=== PATIENT | female | born 2000 | race Caucasian/White ===

== ENCOUNTER 2019-04-22 22:43 | Emergency (ER) | payer SELFPAY ==
[~2019-04-22] VITALS: Ht 170.2 cm; Wt 59.1 kg
[2019-04-22 22:47] VITALS: BP 137/43
--- NOTE | 2019-04-23 00:54 | PHYS DOC ---
Past Medical History Past Medical History: No Pertinent History Past Surgical History: No Surgical History Alcohol Use: None Adult General Chief Complaint Chief Complaint: NOSEBLEED HPI HPI Patient is a 18 year old female who presents with bloody nose that has been intermittently bleeding for 1 week. The patient presents to the ER in her nose is not currently bleeding. The patient states that she has no history of a bloody nose. Complete ROS were reviewed and found to be within normal limits, except as documented in the HPI Physical Exam Physical Exam Constitutional: Well developed, well nourished, no acute distress, non-toxic appearance. [] HENT: Normocephalic, atraumatic, bilateral external ears normal, oropharynx moist, no oral exudates, nose turbinates inflamed. No blood noted. Eyes: PERRLA, EOMI, conjunctiva normal, no discharge. [] Neurologic: Alert and oriented X 3, normal motor function, normal sensory function, no focal deficits noted. [] Psychologic: Affect normal, judgement normal, mood normal. [] Current Patient Data Vital Signs Vital Signs Date Time Temp Pulse Resp B/P (MAP) Pulse Ox O2 Delivery O2 Flow Rate FiO2 04/22/19 22:47 98.1 96 9 137/43 (74) 100 Room Air 98.1 EKG EKG [] Radiology/Procedures Radiology/Procedures [] Course & Med Decision Making Course & Med Decision Making Pertinent Labs and Imaging studies reviewed. (See chart for details) The patient nose is not currently bleeding. A medical screening exam was performed on this patient and the patient does not appear to be having a medical emergency. Her symptoms are not of sufficient severity and within reasonable medical probability it is unlikely the absence of immediate medical attention would result in placing the health of the individual (or, with respect to a woman, the health of the woman or her unborn child) in serious jeopardy, serious impairment to bodily functions, or serious dysfunction of any bodily organ or part. If , the patient is not in labor Dragon Disclaimer Dragon Disclaimer This electronic medical record was generated, in whole or in part, using a voice recognition dictation system. Departure Departure Impression: Primary Impression: Encounter for medical screening examination Disposition: HOME, SELF-CARE Condition: STABLE Referrals: NO PCP (PCP) Patient Instructions: Medical Screening Exam Additional Instructions: Thank you for visiting [facility]. We appreciate you trusting us with your care. If any additional problems come up don't hesitate to return to visit us. Please follow up with your primary care provider so they can plan additional care if needed and know about the problem that you had. If symptoms worsen come back to the Emergency Department. Any concerning symptoms that start such as chest pain, shortness of air, weakness or numbness on one side of the body, running high fevers or any other concerning symptoms return to the ER. SPEEDY GRECO APRN Apr 23, 2019 00:54
== END 2019-04-23 00:32 | disposition home or self-care (01) ==
LOC: ER 22:43
DX: R04.0 Epistaxis (principal)
CPT/HCPCS: 99281

== ENCOUNTER 2020-11-08 00:59 | Emergency (ER) | payer OTHER ==
[~2020-11-08] VITALS: Ht 170.2 cm; Wt 60.0 kg
[2020-11-08] MEDS ORDERED: MORPHINE SULFATE 4 MG/ML INJ. IV/SQ STA (03:01)
[2020-11-08] MEDS ORDERED: ONDANSETRON PF 4 MG/2 ML VIAL. IVP ONE (03:15)
[2020-11-08] MEDS ORDERED: IV NORMAL SALINE 1000ML BAG 1,000 ML IV SCH (03:15)
--- NOTE | 2020-11-08 03:16 | PHYS DOC ---
Past Medical History Past Medical History: No Pertinent History Past Surgical History: No Surgical History Smoking Status: Never Smoker Alcohol Use: None General Adult EDM: Chief Complaint: ABDOMINAL PAIN Problems: (1) Abdominal pain HPI: HPI: 20-year-old female presents to the emergency department complaining of right- sided abdominal pain with no relief after being seen at [facility] yesterday. She reports that her pain is progressed over the last 24 hours and she was told to come back to the emergency department if she was able to eat or tolerate her clear liquid diet that she was put on after her ER encounter yesterday. She now states that her pain is moderate in severity, nonradiating for the right side, associated with nausea without vomiting or diarrhea. Denies further stool changes, urinary troubles. Denies fever chills shortness of breath chest pain Review of Systems: Review of Systems: Constitutional: Denies fever or chills. Eyes: Denies change in vision, pain. HENT: Denies congestion or sore throat. Respiratory: Denies cough or shortness of breath. Cardiovascular: Denies chest pain or edema. GI: Admits to abdominal pain, nausea. : Denies change in urination, dysuria. Musculoskeletal: Denies extremity pain, or trauma. Skin: Denies rash, skin change. Neurologic: Denies headache, focal weakness. Psychiatric: Denies depression or anxiety. All other systems reviewed as negative except for what was mentioned in the HPI. Heart Score: C/O Chest Pain: No Current Medications: Current Medications Medications (Trade) Dose Ordered Sig/Gail Start Time Stop Time Status Last Admin Dose Admin Morphine Sulfate (Morphine Sulfate) 4 mg 1X STAT 11/08/20 03:01 11/08/20 03:10 DC Ondansetron HCl (Zofran) 4 mg 1X ONCE 11/08/20 03:15 11/08/20 03:16 Sodium Chloride 1,000 ml @ 1,000 mls/hr Q1H 11/08/20 03:15 11/08/20 04:14 Allergies: Allergies: Allergies Coded Allergies Type Severity Reaction Last Updated Verified No Known Drug Allergies 11/08/20 No Physical Exam: PE: Constitutional: Mild acute distress, non-toxic appearance. HENT: Atraumatic, bilateral external ears normal, nose normal. Eyes: PERRLA, EOMI, conjunctiva normal, no discharge. Neck: Normal range of motion, supple, no stridor. Cardiovascular: Heart rate regular rhythm. 2+ radial pulses Lungs & Thorax: No respiratory distress, symmetrical expansion. Bilateral norm th sounds clear to auscultation Abdomen: Soft, right upper quadrant tenderness to palpation Skin: Warm, dry. Extremities: No tenderness, no cyanosis, ROM intact, no edema. Neurologic: Alert and oriented X 3, normal motor function, normal sensory function, no focal deficits noted. Non ataxic gait. GCS 15. Psychologic: Affect normal, judgment normal, mood normal. Current Patient Data: Labs: Laboratory Tests Test 11/08/20 03:10 11/08/20 03:13 11/08/20 03:30 Urine Collection Type Unknown Urine Color Yellow Urine Clarity Clear Urine pH 6.0 (<5.0-8.0) Urine Specific [place] 1.025 (1.000-1.030) Urine Protein Negative mg/dL (NEG-TRACE) Urine Glucose (UA) Negative mg/dL (NEG) Urine Ketones (Stick) Negative mg/dL (NEG) Urine Blood Large (NEG) Urine Nitrite Negative (NEG) Urine Bilirubin Negative (NEG) Urine Urobilinogen Dipstick 1.0 mg/dL (0.2 mg/dL) Urine Leukocyte Esterase Negative (NEG) Urine RBC 1-2 /HPF (0-2) Urine WBC Occ /HPF (0-4) Urine Squamous Epithelial Cells Few /LPF Urine Bacteria Few /HPF (0-FEW) Urine Mucus Marked /LPF Bedside Urine HCG, Qualitative Hcg negative (Negative) White Blood Count 4.5 x10^3/uL (4.0-11.0) Red Blood Count 4.04 x10^6/uL (3.50-5.40) Hemoglobin 9.8 g/dL (12.0-15.5) Hematocrit 31.7 % (36.0-47.0) Mean Corpuscular Volume 78 fL (79-100) Mean Corpuscular Hemoglobin 24 pg (25-35) Mean Corpuscular Hemoglobin Concent 31 g/dL (31-37) Red Cell Distribution Width 14.7 % (11.5-14.5) Platelet Count 249 x10^3/uL (140-400) Neutrophils (%) (Auto) 58 % (31-73) Lymphocytes (%) (Auto) 26 % (24-48) Monocytes (%) (Auto) 12 % (0-9) Eosinophils (%) (Auto) 3 % (0-3) Basophils (%) (Auto) 1 % (0-3) Neutrophils # (Auto) 2.6 x10^3/uL (1.8-7.7) Lymphocytes # (Auto) 1.2 x10^3/uL (1.0-4.8) Monocytes # (Auto) 0.6 x10^3/uL (0.0-1.1) Eosinophils # (Auto) 0.1 x10^3/uL (0.0-0.7) Basophils # (Auto) 0.0 x10^3/uL (0.0-0.2) Sodium Level 134 mmol/L (136-145) Potassium Level 3.6 mmol/L (3.5-5.1) Chloride Level 103 mmol/L (98-107) Carbon Dioxide Level 22 mmol/L (21-32) Anion Gap 9 (6-14) Blood Urea Nitrogen 6 mg/dL (7-20) Creatinine 0.9 mg/dL (0.6-1.0) Estimated GFR (Cockcroft-Gault) 79.0 BUN/Creatinine Ratio 7 (6-20) Glucose Level 85 mg/dL (70-99) Calcium Level 8.5 mg/dL (8.5-10.1) Total Bilirubin 0.2 mg/dL (0.2-1.0) Aspartate Amino Transf (AST/SGOT) 22 U/L (15-37) Alanine Aminotransferase (ALT/SGPT) 33 U/L (14-59) Alkaline Phosphatase 53 U/L (46-116) Total Protein 6.8 g/dL (6.4-8.2) Albumin 3.5 g/dL (3.4-5.0) Albumin/Globulin Ratio 1.1 (1.0-1.7) Lipase 135 U/L (73-393) Serum Test, Qualitative Negative (NEG) Vital Signs: Vital Signs Date Time Temp Pulse Resp B/P (MAP) Pulse Ox O2 Delivery O2 Flow Rate FiO2 11/08/20 03:46 18 99 11/08/20 03:09 98.0 74 18 113/59 (74) 99 Room Air 98.0 Radiology/Procedures: Radiology/Procedures: Study: CT abdomen/pelvis with intravenous contrast Indication: Abdominal pain. Comparison: 11/07/2020 Technique: Helical CT imaging performed of the abdomen and pelvis after the intravenous administration of 75 cc Omnipaque 300 contrast. Sagittal and coronal reformats were obtained. One or more of the following individualized dose reduction techniques were utilized for this examination: 1. Automated exposure control 2. Adjustment of the mA and/or kV according to patient size 3. Use of iterative reconstruction technique. Findings: Unremarkable visualized lungs and mediastinal contents. Hepatic parenchymal attenuation is within normal limits in relation to the spleen. Right hepatic lobe calcification/granuloma. Faint fatty infiltration along the falciform ligament. Within normal limits gallbladder, biliary tree, pancreas, and adrenal glands. Upper limits of normal size of the spleen measuring 13.4 cm craniocaudal. Symmetric renal parenchymal enhancement. No hydronephrosis. Normal bladder wall thickness. Within normal limits uterus and ovaries considering patient age. Mild volume colonic stool burden. No localized wall thickening or pericolonic inflammation. The appendix is normal. Nonobstructed small bowel. Unremarkable stomach. No major vascular abnormality. No lymphadenopathy by size criteria. Trace free pelvic fluid also seen on the prior. No acute or aggressive osseous process. Several small Schmorl's nodes. Minimal lumbar levocurvature and disc space narrowing at L5-S1. Impression: 1. No acute abnormality is identified throughout the abdomen or pelvis or significant change from the 11/07/2020 comparison. A tiny amount of free fluid is seen within the deep pelvis typically physiologic in a patient this age and also present previously. Electronically signed by: MINDA CROSS MD (11/08/2020 5:05 AM) Course & Med Decision Making: Course & Med Decision Making Per chart review from the ER encounter yesterday [place]. The patient had a CT Noncon of the abdomen and pelvis that showed some biliary sludge, normal lab work, normal Plain view x-ray. CT today is unremarkable, labs are unremarkable, patient was discharged in stable condition advised to use Pepcid, Tylenol or ibuprofen for pain at home Departure Departure Impression: Primary Impression: Abdominal pain Disposition: 01 HOME / SELF CARE / HOMELESS Referrals: NO PCP (PCP) Patient Instructions: Abdominal Pain (Nonspecific) Additional Instructions: You were seen in the emergency department for abdominal pain. Your tests did not show any obvious acute cause of your symptoms and your physical exam was non concerning for a dangerous disease process at this time. This however can change early in a disease course. You must return to the ED if you develop any new or worrisome symptoms for another exam. - Make sure to drink plenty of fluids at home - You may take a gentle laxative such as Miralax (over the counter) for bowel comfort. - Avoid drinking alcohol while you are having abdominal pain as this may worsen symptoms. - Return to the ER if you are not able to tolerate water and/or a normal diet, have increased pain or a change in character of your pain, develop a fever (>100.3 F), have nausea, vomiting and/or diarrhea that is unable to be treated at home, pass out, and/or you are not able to perform you normal daily activity. JENNIFER MENDEZ DO Nov 08, 2020 03:15
[2020-11-08 03:23] LABS: BILIRUBIN,URINE NEGATIVE (NEG); CLARITY,URINE CLEAR; COLOR,URINE YELLOW; NITRITE,URINE NEGATIVE (NEG); PROTEIN,URINE NEGATIVE (NEG-TRACE)
[2020-11-08 03:31] LABS: BACTERIA,URINE FEW /HPF (0-FEW); WBC,URINE OCC /HPF (0-4)
[2020-11-08 03:46] LABS: BASO % 1 % (0-3); EOS # 0.1 x10^3/uL (0.0-0.7); EOS % 3 % (0-3); HEMATOCRIT 31.7 % (36.0-47.0); HEMOGLOBIN 9.8 g/dL (12.0-15.5); LYMPH # 1.2 x10^3/uL (1.0-4.8); LYMPH % 26 % (24-48); MEAN CORPUSCULAR HEMOGLOBIN 24 pg (25-35); MEAN CORPUSCULAR HGB CONC 31 g/dL (31-37); MEAN CORPUSCULAR VOLUME 78 fL (79-100); MONO # 0.6 x10^3/uL (0.0-1.1); MONO % 12 % (0-9); NEUT # 2.6 x10^3/uL (1.8-7.7); NEUT % 58 % (31-73); PLATELET COUNT 249 x10^3/uL (140-400); RED BLOOD COUNT 4.04 x10^6/uL (3.50-5.40); RED CELL DISTRIBUTION WIDTH 14.7 % (11.5-14.5); WHITE BLOOD COUNT 4.5 x10^3/uL (4.0-11.0)
[2020-11-08 04:04] LABS: CALCIUM 8.5 mg/dL (8.5-10.1); CREATININE 0.9 mg/dL (0.6-1.0); POTASSIUM 3.6 mmol/L (3.5-5.1)
[2020-11-08 04:10] LABS: ALBUMIN 3.5 g/dL (3.4-5.0); ALBUMIN/GLOBULIN RATIO 1.1 (1.0-1.7); TOTAL BILIRUBIN 0.2 mg/dL (0.2-1.0); TOTAL PROTEIN 6.8 g/dL (6.4-8.2)
[2020-11-08] MEDS ORDERED: IOHEXOL 300 MG/ML 100ML VIAL. IV ONE (04:15)
[2020-11-08] MEDS ORDERED: CONTRAST GIVEN. MC PRN (04:15)
[2020-11-08 04:27] LABS: PREG TEST PT QUAL NEGATIVE (NEG)
[2020-11-08 04:30] VITALS: BP 127/56
--- NOTE | 2020-11-08 05:07 | RAD ---
Study: CT abdomen/pelvis with intravenous contrast Indication: Abdominal pain. Comparison: 11/07/2020 Technique: Helical CT imaging performed of the abdomen and pelvis after the intravenous administratio n of 75 cc Omnipaque 300 contrast. Sagittal and coronal reformats were obtained. One or more of the following individualized dose reduction techniques were utilized for this examinat ion: 1. Automated exposure control 2. Adjustment of the mA and/or kV according to patient size 3. Use of iterative reconstruction technique. Findings: Unremarkable visualized lungs and mediastinal contents. Hepatic parenchymal attenuation is within normal limits in relation to the spleen. Right hepatic lobe calcification/granuloma. Faint fatty infiltration along the falciform ligament. Within normal limits gallbladder, biliary tree, pancreas, and adrenal glands. Upper limits of normal size of the spleen m easuring 13.4 cm craniocaudal. Symmetric renal parenchymal enhancement. No hydronephrosis. Normal sarah dder wall thickness. Within normal limits uterus and ovaries considering patient age. Mild volume colonic stool burden. No localized wall thickening or pericolonic inflammation. The appen allen is normal. Nonobstructed small bowel. Unremarkable stomach. No major vascular abnormality. No lymphadenopathy by size criteria. Trace free pelvic fluid also seen on the prior. No acute or aggressive osseous process. Several small Schmorl's nodes. Minimal lumbar levocurvature a nd disc space narrowing at L5-S1. Impression: 1. No acute abnormality is identified throughout the abdomen or pelvis or significant change from th e 11/07/2020 comparison. A tiny amount of free fluid is seen within the deep pelvis typically physiolog ic in a patient this age and also present previously. Electronically signed by: MINDA CROSS MD (11/08/2020 5:05 AM) [facility]
== END 2020-11-08 05:46 | disposition home or self-care (01) ==
LOC: ER 00:59
DX: R10.11 Right upper quadrant pain (principal); R11.0 Nausea
CPT/HCPCS: 36415; 74177; 80053; 81001; 81025; 83690; 84703; 85025; 96361; 96374; 96375; 99285; J2270; J2405; J7030; Q9967